=== PATIENT | female | born 1985 | race Caucasian/White ===

== ENCOUNTER → 2017-10-29 | Outpatient (CLI) | payer OTHER | END | disposition home or self-care (01) | LOC: US 13:52 | DX: N63.20 Unspecified lump in the left breast, unspecified quadrant (principal); R92.8 Other abnormal and inconclusive findings on diagnostic imaging of breast ==

== ENCOUNTER → 2018-01-14 | Outpatient (CLI) | payer OTHER | END | disposition home or self-care (01) | LOC: US 13:00 | DX: N63.20 Unspecified lump in the left breast, unspecified quadrant (principal) ==

== ENCOUNTER → 2023-10-23 | Outpatient (CLI) | payer OTHER | END | disposition home or self-care (01) | LOC: MAMMO 00:14 | PROVIDERS: ATTEND Nurse Practitioner Women's Health | DX: N63.20 Unspecified lump in the left breast, unspecified quadrant (principal); N60.02 Solitary cyst of left breast; R92.323 Mammographic fibroglandular density, bilateral breasts ==

== ENCOUNTER → 2024-12-31 | Outpatient (CLI) | payer OTHER | END | disposition home or self-care (01) | LOC: MAMMO 07:12 | PROVIDERS: ATTEND Nurse Practitioner Women's Health | DX: Z12.31 Encounter for screening mammogram for malignant neoplasm of breast (principal) ==

== ENCOUNTER → 2025-04-26 | Day surgery (SDC) | payer OTHER ==
[~2025-04-26] VITALS: Ht 167.6 cm; Wt 81.6 kg
[~2025-04-26] MED LIST: ACETAMINOPHEN 50 ML IV ONE; Bacitracin Zinc/Neomycin/Pol 15 GM TUBE T ONE; Dexamethasone Sodium Phospha 4 MG/ML VIAL IV ONE; GLYCOPYRROLATE 0.4 MG/2 ML VIAL IV ONE; Lactated Ringer's Solution 1,000 ML IV ONE; Lidocaine Hydrochloride 2% 5 ML SDV IM ONE; Lidocaine Hydrochloride 30 ML VIAL ONE; Midazolam Hydrochloride 2 MG/2 ML VIAL IV ONE; Ondansetron Hydrochloride 4 MG/2 ML VIAL IV ONE; PROPOFOL 200 MG/20 ML VIAL IV ONE; SEVOFLURANE 250 ML BOT INH ONE; SILVER NITRATE APPLICATOR 1 EACH APP T ONE
[2025-04-26 06:59] VITALS: BP 124/63
[2025-04-26 08:43] VITALS: BP 111/55
[2025-04-26 09:03] VITALS: BP 111/65
[2025-04-26 09:13] VITALS: BP 127/77
[2025-04-26 09:19] VITALS: BP 121/79
== END | disposition home or self-care (01) ==
LOC: SDC 04-22 08:00
PROVIDERS: ATTEND Obstetrics & Gynecology
DX: N90.7 Vulvar cyst (principal); D28.0 Benign neoplasm of vulva; F32.A Depression, unspecified; F41.9 Anxiety disorder, unspecified; F84.0 Autistic disorder; F90.9 Attention-deficit hyperactivity disorder, unspecified type; K21.9 Gastro-esophageal reflux disease without esophagitis; E78.00 Pure hypercholesterolemia, unspecified; M41.9 Scoliosis, unspecified; Z88.8 Allergy status to other drugs, medicaments and biological substances